=== PATIENT | male | born 1980 | race Asian ===

== ENCOUNTER 2018-07-13 19:27 | Inpatient (IN) | payer BC ==
[~2018-07-13] VITALS: Ht 170.2 cm; Wt 78.2 kg
[2018-07-13 20:33] LABS: RED CELL DISTRIBUTION WIDTH 13.6 % (11.5-14.5)
[2018-07-13 20:45] LABS: PLATELET COUNT 417 x10^3mcL (130-400)
[2018-07-13 20:56] LABS: ALBUMIN 3.4 g/dL (3.4-5.0); ALKALINE PHOSPHATASE 181 U/L (46-116); ALT/SGPT 14 U/L (16-63); AST/SGOT 6 U/L (15-37); BILIRUBIN TOTAL 0.5 mg/dL (0.20-1.00); CALCIUM 8.6 mg/dL (8.5-10.1); CHLORIDE SERUM 94 mmol/L (98-107); CREATININE SERUM 1.6 mg/dL (0.7-1.3); GFR1 52 mL/min; POTASSIUM SERUM 4.7 mmol/L (3.5-5.1); SODIUM SERUM 131 mmol/L (136-145)
[2018-07-13 20:57] LABS: TOTAL PROTEIN, SERUM 9.3 g/dL (6.4-8.2)
[2018-07-13 21:00] LABS: CARBON DIOXIDE 7.2 mmol/L (21-32)
[2018-07-13 21:01] LABS: GLUCOSE SERUM 545 mg/dL (74-106)
[2018-07-13 21:14] LABS: UA SPECIFIC GRAVITY >=1.030 (1.005-1.035); microscopic required? YES; urine erythrocyte 2+ (NEGATIVE)
[2018-07-13 21:21] LABS: BAND NEUTROPHIL 5 % (0-10); METAMYELOCTE 6 % (0-2); MONOCYTE 2 % (0-7); SEGMENTED NEUTROPHILS 85 % (37-75)
[2018-07-13 21:23] LABS: PLATELET MORPHOLOGY FEW LARGE PLATELETS; rbc morphology (normal/abnorm) NORMAL (NORMAL)
[2018-07-13] MEDS ORDERED: METFORMIN HYDR500 M1 (22:44)
[2018-07-13 22:57] LABS: T3 TOTAL 0.32 ng/mL
[2018-07-13 23:05] LABS: MAGNESIUM 2.2 mg/dL (1.8-2.4); PHOSPHOROUS 4.8 mg/dL (2.5-4.9)
[2018-07-13 23:06] LABS: CHOLESTEROL/HDL RATIO 5.4
[2018-07-13 23:21] VITALS: BP 142/85
[2018-07-13 23:32] LABS: AMPHETAMINE QUAL UR NONE DETECTED (See below)
[2018-07-13 23:43] LABS: FREE T4 0.87 ng/dL (0.76-1.46)
[2018-07-13 23:50] LABS: FREE THYROXINE INDEX 1.5 ug/dL (1.4-4.5); T4(THYROXINE) 3.9 ug/dL (4.7-13.3)
[2018-07-14] VITALS (7 sets, daily range): BP systolic 111–134; BP diastolic 68–74; Ht 170.2 cm; Wt 78.2 kg
[2018-07-14 00:38] LABS: CALCIUM 7.9 mg/dL (8.5-10.1); CHLORIDE SERUM 99 mmol/L (98-107); CREATININE SERUM 1.4 mg/dL (0.7-1.3); GFR1 > 60 mL/min; MAGNESIUM 2.3 mg/dL (1.8-2.4); SODIUM SERUM 133 mmol/L (136-145)
[2018-07-14 00:44] LABS: CARBON DIOXIDE 4.7 mmol/L (21-32); GLUCOSE SERUM 484 mg/dL (74-106)
[2018-07-14 05:00] LABS: CALCIUM 7.8 mg/dL (8.5-10.1); CARBON DIOXIDE 11.7 mmol/L (21-32); CHLORIDE SERUM 104 mmol/L (98-107); CREATININE SERUM 1.2 mg/dL (0.7-1.3); GFR1 > 60 mL/min; GLUCOSE SERUM 175 mg/dL (74-106); MAGNESIUM 1.9 mg/dL (1.8-2.4); POTASSIUM SERUM 3.9 mmol/L (3.5-5.1); SODIUM SERUM 136 mmol/L (136-145)
[2018-07-14 08:32] LABS: PLATELET COUNT 353 x10^3mcL (130-400); RED CELL DISTRIBUTION WIDTH 13.3 % (11.5-14.5)
[2018-07-14 08:37] LABS: CALCIUM 7.5 mg/dL (8.5-10.1); CARBON DIOXIDE 13.1 mmol/L (21-32); CHLORIDE SERUM 104 mmol/L (98-107); CREATININE SERUM 1.1 mg/dL (0.7-1.3); GFR1 > 60 mL/min; GLUCOSE SERUM 217 mg/dL (74-106); MAGNESIUM 1.6 mg/dL (1.8-2.4); POTASSIUM SERUM 3.5 mmol/L (3.5-5.1); SODIUM SERUM 135 mmol/L (136-145)
[2018-07-14 11:08] LABS: BAND NEUTROPHIL 22 % (0-10); BASOPHIL 0 % (0-2); MONOCYTE 6 % (0-7); PLATELET MORPHOLOGY LARGE PLATELET SEEN; SEGMENTED NEUTROPHILS 70 % (37-75); rbc morphology (normal/abnorm) NORMAL (NORMAL)
[2018-07-14 13:00] LABS: CALCIUM 7.8 mg/dL (8.5-10.1); CARBON DIOXIDE 15.8 mmol/L (21-32); CHLORIDE SERUM 102 mmol/L (98-107); GFR1 > 60 mL/min; GLUCOSE SERUM 199 mg/dL (74-106); MAGNESIUM 1.8 mg/dL (1.8-2.4); PHOSPHOROUS 1.5 mg/dL (2.5-4.9); POTASSIUM SERUM 3.1 mmol/L (3.5-5.1); SODIUM SERUM 134 mmol/L (136-145)
[2018-07-14 20:10] LABS: CARBON DIOXIDE 19.1 mmol/L (21-32); CHLORIDE SERUM 101 mmol/L (98-107); CREATININE SERUM 0.9 mg/dL (0.7-1.3); GFR1 > 60 mL/min; GLUCOSE SERUM 198 mg/dL (74-106); MAGNESIUM 1.6 mg/dL (1.8-2.4); PHOSPHOROUS 1.7 mg/dL (2.5-4.9); SODIUM SERUM 132 mmol/L (136-145)
[2018-07-14 20:16] LABS: POTASSIUM SERUM 2.9 mmol/L (3.5-5.1)
[2018-07-15 00:53] LABS: CALCIUM 8.1 mg/dL (8.5-10.1); CARBON DIOXIDE 19.7 mmol/L (21-32); CHLORIDE SERUM 103 mmol/L (98-107); CREATININE SERUM 0.7 mg/dL (0.7-1.3); GFR1 > 60 mL/min; GLUCOSE SERUM 191 mg/dL (74-106); MAGNESIUM 2.6 mg/dL (1.8-2.4); PHOSPHOROUS 1.3 mg/dL (2.5-4.9); SODIUM SERUM 133 mmol/L (136-145)
[2018-07-15 01:02] LABS: POTASSIUM SERUM 2.7 mmol/L (3.5-5.1)
[2018-07-15 03:30] VITALS: BP 116/70
[2018-07-15 05:08] LABS: PLATELET COUNT 290 x10^3mcL (130-400); RED CELL DISTRIBUTION WIDTH 13.4 % (11.5-14.5)
[2018-07-15 05:14] LABS: CALCIUM 8.1 mg/dL (8.5-10.1); CARBON DIOXIDE 17.6 mmol/L (21-32); CHLORIDE SERUM 103 mmol/L (98-107); CREATININE SERUM 0.7 mg/dL (0.7-1.3); GFR1 > 60 mL/min; GLUCOSE SERUM 227 mg/dL (74-106); MAGNESIUM 2.3 mg/dL (1.8-2.4); PHOSPHOROUS 1.2 mg/dL (2.5-4.9); POTASSIUM SERUM 3.1 mmol/L (3.5-5.1); SODIUM SERUM 132 mmol/L (136-145)
[2018-07-15 05:38] LABS: BAND NEUTROPHIL 21 % (0-10); MONOCYTE 9 % (0-7); SEGMENTED NEUTROPHILS 63 % (37-75)
[2018-07-15 05:43] LABS: PLATELET MORPHOLOGY PLATELETS NORMAL; acanthocyte (spur cell) 1+; rbc morphology (normal/abnorm) ABNORMAL (NORMAL)
[2018-07-15 08:00] VITALS: BP 127/86
[2018-07-15 08:27] LABS: CARBON DIOXIDE 18.9 mmol/L (21-32); CHLORIDE SERUM 103 mmol/L (98-107); CREATININE SERUM 0.8 mg/dL (0.7-1.3); GFR1 > 60 mL/min; GLUCOSE SERUM 230 mg/dL (74-106); MAGNESIUM 2.3 mg/dL (1.8-2.4); PHOSPHOROUS 1.3 mg/dL (2.5-4.9); POTASSIUM SERUM 3.2 mmol/L (3.5-5.1); SODIUM SERUM 133 mmol/L (136-145)
[2018-07-15 12:00] VITALS: BP 130/91
[2018-07-15 16:00] VITALS: BP 132/85
[2018-07-15 20:31] VITALS: BP 124/88
[2018-07-16 05:42] LABS: BASOPHIL % 1.5 % (0-2); PLATELET COUNT 307 x10^3mcL (130-400); RED CELL DISTRIBUTION WIDTH 13.7 % (11.5-14.5)
[2018-07-16 06:07] VITALS: BP 128/95
[2018-07-16 06:19] LABS: CALCIUM 8.1 mg/dL (8.5-10.1); CARBON DIOXIDE 22.6 mmol/L (21-32); CHLORIDE SERUM 107 mmol/L (98-107); CREATININE SERUM 0.5 mg/dL (0.7-1.3); GFR1 > 60 mL/min; GLUCOSE SERUM 204 mg/dL (74-106); PHOSPHOROUS 3.4 mg/dL (2.5-4.9); POTASSIUM SERUM 3.1 mmol/L (3.5-5.1); SODIUM SERUM 139 mmol/L (136-145)
[2018-07-16 08:52] VITALS: BP 123/91
[2018-07-16] MEDS ORDERED: METFORMIN HCL1000 MG PO (09:27)
[2018-07-16] MEDS ORDERED: 1ST TIER UNILE1 EAC1 MC (09:28)
[2018-07-16] MEDS ORDERED: [UNRECOGNIZED DRUG - SUPPLY] MC (09:30)
[2018-07-16] MEDS ORDERED: CLEOCIN HCL300 MG PO (09:31)
[2018-07-16] MEDS ORDERED: METER-CHECK1 EACH MC (09:36)
[2018-07-16] MEDS ORDERED: DIFLUCAN200 MG PO (10:46)
[2018-07-16 11:37] VITALS: BP 123/91
== END 2018-07-16 13:40 | disposition home or self-care (01) | DRG 853 ==
LOC: ED 19:27 → IC 22:18 → MU 07-15 16:44
PROVIDERS: Emergency Medicine; ADMIT Family Medicine
PROC: 0W960ZZ Drainage of Neck, Open Approach (ICD-10-PCS; principal; 2018-07-14)
DX: A41.9 Sepsis, unspecified organism (principal); E11.10 Type 2 diabetes mellitus with ketoacidosis without coma; N17.0 Acute kidney failure with tubular necrosis; E87.1 Hypo-osmolality and hyponatremia; N39.0 Urinary tract infection, site not specified; L02.11 Cutaneous abscess of neck; E78.5 Hyperlipidemia, unspecified; E11.65 Type 2 diabetes mellitus with hyperglycemia; E87.8 Other disorders of electrolyte and fluid balance, not elsewhere classified; E86.0 Dehydration; Z98.42 Cataract extraction status, left eye; Z98.41 Cataract extraction status, right eye; Z83.3 Family history of diabetes mellitus; Z79.4 Long term (current) use of insulin
CPT/HCPCS: 36600; 82962; 83880; 84439; 87804; J1450; J1815; J3370; J3475; J3480; J3490; J7030; J7050; J7620; Q0092